=== PATIENT | male | born 1995 | race American Indian/Alaskan Native ===

== ENCOUNTER 2018-04-23 21:36 | Emergency (ER) | payer OTHER ==
[2018-04-23 21:41] VITALS: BP 138/95
--- NOTE | 2018-04-23 21:49 | Emergency Department Report ---
Chief Complaint: Extremity Injury, Upper Stated Complaint: RIGHT FINGER SWOLLEN - HPI History of Present Illness: Pt states that his puppy bit him about a week ago, he says the puppy has been vaccinated he has two healed abrasions above the right middle finger nail, no nail involvement he has pain and swelling to the right middle finger surrounding the nail and in the pulp of the right middle finger that began yesterday no fever, no drainage - Exam Vital Signs: Vital Signs 04/23/18 21:40 Temperature 98.1 F Pulse Rate 70 Respiratory 18 Rate Blood Pressure 138/95 O2 Sat by Pulse 100 Oximetry MSE screening note: Focused history and physical exam performed. ED Disposition for MSE Condition: Stable
[2018-04-23] MEDS ORDERED: XYLOCAINE 1% 20 mL INFILTRATI ONE (23:40)
--- NOTE | 2018-04-23 23:45 | XRay Report ---
PROCEDURE: XR FINGER(S) 2+V RT TECHNIQUE: Right third digit 3 views HISTORY: right middle finger infection COMPARISONS: FINDINGS: No fracture identified. No dislocation seen. No radiopaque foreign body identified. No soft tissue ga s appreciated. No destructive bony changes observed. IMPRESSION: No acute abnormality identified This document is electronically signed by Tyron Guzmán MD., April 23 2018 11:43:22 PM ET
[2018-04-24] MEDS ORDERED: NORCO 5/325 PO ONE (00:43)
--- NOTE | 2018-04-24 00:48 | Emergency Department Report ---
ED General Adult HPI - General Chief complaint: Extremity Injury, Upper Stated complaint: RIGHT FINGER SWOLLEN Time Seen by Provider: 04/23/18 23:01 Source: patient Mode of arrival: Ambulatory Limitations: No Limitations - History of Present Illness Initial comments: Pt is a 22 yo male who presents to the ED with c/o pain and edema to the right middle finger that began yesterday. Pt states that his puppy bit him about a week ago, he says the puppy has been vaccinated. The patient states it just left a small abrasion above the right middle finger nail. The patient does also bite his nails. He denies any fever or drainage. He has been able to move the digit without any difficulty. He is UTD on his tetanus. Severity scale (0 -10): 8 - Related Data Previous Rx's Medication Instructions Recorded Last Taken Type Amoxicillin/Potassium Clav 1 each PO BID 5 Days #10 tablet 04/24/18 Unknown Rx [Augmentin 875-125 Tablet] Allergies Allergy/AdvReac Type Severity Reaction Status Date / Time No Known Allergies Allergy Unverified 04/23/18 21:39 ED Review of Systems ROS: Stated complaint: RIGHT FINGER SWOLLEN Other details as noted in HPI Comment: All other systems reviewed and negative ED Past Medical Hx - Past Medical History Previous Medical History?: No - Surgical History Past Surgical History?: No - Social History Smoking Status: Current Every Day Smoker Substance Use Type: None - Medications Home Medications: Home Medications Medication Instructions Recorded Confirmed Last Taken Type Amoxicillin/Potassium Clav 1 each PO BID 5 Days #10 tablet 04/24/18 Unknown Rx [Augmentin 875-125 Tablet] ED Physical Exam - General Limitations: No Limitations - Extremities Exam Extremities exam: Present: other (edema and fluctuance on the right side of the right middle finger surrounding the nail, no warmth, FROM of the right middle finger, small healed abrasion above the right middle finger, no involvement of the nail, no involvement of the pulp of the right middle finger) ED Course Vital Signs 04/23/18 21:40 Temperature 98.1 F Pulse Rate 70 Respiratory 18 Rate Blood Pressure 138/95 O2 Sat by Pulse 100 Oximetry - I & D Right Dorsal Finger Site: paronychia of the right middle finger Blade Size: 11 I & D Procedure: betadine prep, sterile drapes applied, sterile dressing applied Progress: small incision made surrounding the nail bed, moderate amount of purulent drainage, irrigated, gauze applied ED Medical Decision Making - Radiology Data Radiology results: report reviewed, image reviewed PROCEDURE: XR FINGER(S) 2+V RT TECHNIQUE: Right third digit 3 views HISTORY: right middle finger infection COMPARISONS: FINDINGS: No fracture identified. No dislocation seen. No radiopaque foreign body identified. No soft tissue gas appreciated. No destructive bony changes observed. IMPRESSION: No acute abnormality identified This document is electronically signed by Tyron Guzmán MD., April 23 2018 11:43:22 PM ET - Medical Decision Making Pt presents to the ED with right middle finger edema and pain. Examination consistent with a paronychia. XR of the finger is normal with no gas present or bony destruction. Discussed radiology results with pt. I&D performed of the right middle finger paronychia with irrigation. Will place pt on augmentin, advised to take medications as prescribed. Follow up with PCP in the next 2-3 days. Return to the emergency room if any new or worsening symptoms. Critical care attestation.: If time is entered above; I have spent that time in minutes in the direct care of this critically ill patient, excluding procedure time. ED Disposition Clinical Impression: Paronychia Disposition: DC-01 TO HOME OR SELFCARE Is pt being admited?: No Does the pt Need Aspirin: No Condition: Stable Instructions: Paronychia (ED) Additional Instructions: Follow up with your primary care doctor in the next 2-3 days. Take all medication as prescribed. Return to the emergency room if any new or worsening symptoms. Prescriptions: Amoxicillin/Potassium Clav [Augmentin 875-125 Tablet] 1 each PO BID 5 Days #10 tablet Referrals: TONIA POLLOCK MD [Primary Care Provider] - 2-3 Days Time of Disposition: 00:53 Print Language: CZECH
== END 2018-04-24 01:18 | disposition home or self-care (01) ==
LOC: ED 21:36
DX: L03.011 Cellulitis of right finger (principal); F17.200 Nicotine dependence, unspecified, uncomplicated
CPT/HCPCS: 99283